=== PATIENT | female | born 1980 ===

== ENCOUNTER 2025-07-24 07:30 | Inpatient (IN) | payer OTHER ==
[~2025-07-24] VITALS: Ht 157.5 cm; Wt 97.1 kg
[2025-07-29] VITALS (9 sets, daily range): BP systolic 120–152; BP diastolic 69–92
[2025-07-29] MEDS ORDERED: PRENATAL TABLE1 EAC4 PO (00:16)
[2025-07-29] MEDS ORDERED: LABETALOL HCL200 MG PO (00:16)
[2025-07-29] MEDS ORDERED: OXYTOCIN 500 ML IV SCH (00:30)
[2025-07-29] MEDS ORDERED: MORPHINE SULFATE 4 MG/ML VIAL IV PRN (00:30)
[2025-07-29 03:00] LABS: BASO % 0.3 % (0.1-1.2); EOS # 0.10 (0.04-0.54); EOS % 1.1 % (0.7-7.0); LYMPH # 2.38 (1.18-3.74); LYMPH % 25.3 % (19.3-53.1); MEAN PLATELET VOLUME 10.30 fl (9.4-12.4); MONO # 0.75 (0.24-0.82); MONO % 8.0 % (4.7-12.5); NEUT # 6.11 (1.56-6.13); NEUT % 65.1 % (34.0-71.1); RED CELL DISTRIBUTION WIDTH 13.2 % (11.6-14.4)
[2025-07-29 03:08] LABS: INR < 0.93
[2025-07-29 03:16] LABS: ALT/SGPT 37.0 U/L (12-78); AST/SGOT 26.0 U/L (15-37); BILIRUBIN TOTAL 0.38 mg/dL (0.3-1.2); BUN CREA RATIO 21.0 (7.0-25.0); CREATININE SERUM 0.72 mg/dL (0.55-1.02); GFR 88.41; GLOBULINA 4.1 G/DL (2.4-3.5); GLUCOSE FASTING 94.0 mg/dL (65-100); OSMOLALITY SERUM 278.0 MOSM/KG (275-295)
[2025-07-29 03:49] LABS: URINE BILIRRUBIN NEGATIVE (NEGATIVE); URINE BLOOD TRACE; URINE GLUCOSE NEGATIVE (NEGATIVE); URINE KETONE NEGATIVE (NEGATIVE); URINE LEUKOCYTE SMALL; URINE NITRATE NEGATIVE; URINE PROTEIN NEGATIVE (NEGATIVE); URINE UROBILINOGEN 0.2 E.U./dl
[2025-07-29 03:50] LABS: URINE APPEARANCE CLEAR; URINE COLOR YELLOW
[2025-07-29 03:51] LABS: URINE BACTERIA MODERATE; URINE EPITHELIAL CELLS NONE SEEN /HPF; URINE RBC 0-3 /HPF; URINE WBC 0-2 /hpf
[2025-07-29] MEDS ORDERED: OXYTOCIN 20 UNITS/500ML RL PIGGYBAG IV ONE (07:20)
[2025-07-29] MEDS ORDERED: LABETALOL HCL 200 MG TABLET PO SCH (09:00)
[2025-07-29] MEDS ORDERED: ERYTHROMYCIN BASE OPHT 1GM EACH TUBE OP ONE (12:44)
[2025-07-29] MEDS ORDERED: LIDOCAINE HCL 1% 10ML VIAL ONE ×2 (13:06→13:10)
[2025-07-29] MEDS ORDERED: CHLORHEXIDINE GLUCONATE 120 ML BOTTLE TOP ONE (13:10)
[2025-07-29] MEDS ORDERED: OXYTOCIN 20 UNITS/1000ML RL PIGGYBAG IV ONE (13:10)
[2025-07-29] MEDS ORDERED: OXYTOCIN 1,000 ML IV ONE (14:15)
[2025-07-29] MEDS ORDERED: CHLORHEXIDINE GLUCONATE 120 ML BOTTLE TP SCH (14:15)
[2025-07-29] MEDS ORDERED: DOCUSATE SODIUM 100MG CAP PO SCH (17:00)
[2025-07-30] VITALS: BP 139/74
[2025-07-30 07:10] LABS: BASO % 0.4 % (0.1-1.2); EOS # 0.09 (0.04-0.54); EOS % 0.9 % (0.7-7.0); LYMPH # 2.61 (1.18-3.74); LYMPH % 26.8 % (19.3-53.1); MEAN PLATELET VOLUME 9.70 fl (9.4-12.4); MONO # 0.89 (0.24-0.82); MONO % 9.1 % (4.7-12.5); NEUT # 6.09 (1.56-6.13); NEUT % 62.5 % (34.0-71.1); RED CELL DISTRIBUTION WIDTH 12.9 % (11.6-14.4)
[2025-07-30 10:31] VITALS: BP 154/89; O2SAT 99
[2025-07-30 15:55] VITALS: BP 149/82
[2025-07-31] VITALS: BP 148/83
[2025-07-31 08:00] VITALS: BP 144/88
== END 2025-07-31 14:06 | disposition home or self-care (01) | DRG 807 ==
LOC: LDR 07-28 23:39 → OB/GYN 07-29 14:04
PROVIDERS: ADMIT Obstetrics & Gynecology Gynecology; ATTEND Obstetrics & Gynecology Gynecology
PROC: 4A1HXCZ Monitoring of Products of Conception, Cardiac Rate, External Approach (ICD-10-PCS; 2025-07-28)
PROC: 10E0XZZ Delivery of Products of Conception, External Approach (ICD-10-PCS; principal; 2025-07-29)
PROC: 0KQM0ZZ Repair Perineum Muscle, Open Approach (ICD-10-PCS; 2025-07-29)
DX: O70.1 Second degree perineal laceration during delivery (principal); Z37.0 Single live birth; Z3A.38 38 weeks gestation of pregnancy

== ENCOUNTER 2025-07-26 13:04 | Outpatient (CLI) | payer OTHER | END 2025-07-26 14:16 | disposition home or self-care (01) | LOC: NST 13:04 | PROVIDERS: ATTEND Obstetrics & Gynecology Gynecology | DX: Z34.83 Encounter for supervision of other normal pregnancy, third trimester (principal) ==

== ENCOUNTER 2025-07-26 20:10 | Outpatient (CLI) | payer OTHER ==
[2025-07-26 20:20] VITALS: BP 108/68
[2025-07-26 20:30] VITALS: BP 108/68
[2025-07-26 23:14] VITALS: BP 134/72
[2025-07-27 04:09] VITALS: BP 138/79
[2025-07-27 07:35] VITALS: BP 135/78
[2025-07-27 12:01] VITALS: BP 134/86
[2025-07-27 13:17] VITALS: BP 134/86
== END 2025-07-27 15:28 | disposition home or self-care (01) ==
LOC: OBS/DEL 20:10
PROVIDERS: ATTEND Obstetrics & Gynecology
DX: O26.893 Other specified pregnancy related conditions, third trimester (principal); Z3A.38 38 weeks gestation of pregnancy